=== PATIENT | female | born 1960 | race Caucasian/White ===

== ENCOUNTER 2021-03-18 08:54 | Emergency (ER) | payer OTHER ==
[~2021-03-18] VITALS: Ht 157.5 cm; Wt 82.6 kg
[2021-03-18] MEDS ORDERED: COZAAR25 MG PO (09:09)
== END 2021-03-18 10:13 | disposition home or self-care (01) ==
LOC: ED 08:54
DX: U07.1 COVID-19 (principal); I10 Essential (primary) hypertension; Z85.528 Personal history of other malignant neoplasm of kidney; Z79.899 Other long term (current) drug therapy
CPT/HCPCS: 94640; 94664; 99283; J7512

== ENCOUNTER 2023-01-19 15:32 | Emergency (ER) | payer BC ==
[~2023-01-19] VITALS: Ht 157.5 cm; Wt 82.5 kg
--- OUTSIDE RECORDS SUMMARY | ~2023-01-19 | XMS | Continuity of Care Document ---
Demographics + + + | Address | [address] | | | [place] [address] | + + + | Preferred Language | Unknown | + + + | Marital Status | Unknown | + + + | Yarsanism Affiliation | Unknown | + + + | Race | White | + + + | Ethnic Group | Unknown | + + + Author + + + | Author | [facility] | + + + | Organization | [facility] | + + + | Address | [address] | | | [place] [address] | + + + | Phone | | + + + Care Team Providers + + + + | [facility] [employer] Name | Role | Phone | + + + + Unavailable | Unavailable | + + + + Allergies No information. Encounters No information. Functional Status No information. Immunizations No information. Medications No information. Problems No information. Procedures No information. Results/Labs +--------+--------+ +---------+--------+---------+ | test | date | facility | value | unit | notes | +--------+--------+ +---------+--------+---------+ + + | Result panel 1 | + + + + + +-------+---------+ + | POC | 2022-12-04 | [facility] | 0.8 | mg/dl | NOTE: | | CREATININE | 09:58:14 | [facility] | | | Specimen | | | | MEDICAL | | | Type: Blood | | | | [facility] | | | | + + + +-------+---------+ + Social History +--------+ + + | date | description | facility | +--------+ + + Vital Signs No information."
[~2023-01-19 15:32] MED LIST: COZAAR25 MG PO
[2023-01-19] MEDS ORDERED: LEVOTHYROXINE25 MC1 PO (15:45)
[2023-01-19] MEDS ORDERED: OZEMPIC2 MG/0.75 SQ (15:45)
[2023-01-19] MEDS ORDERED: ZETIA10 MG PO (15:46)
[2023-01-19] MEDS ORDERED: CRESTOR5 MG PO (15:46)
[2023-01-19] MEDS ORDERED: ALDACTONE50 MG PO (15:47)
[2023-01-19 15:52] LABS: BASOPHILS 1.2 % (0-2); EOSINOPHILS 0.9 % (0-6); HEMATOCRIT 37.4 % (35.0-50.0); HEMOGLOBIN 11.7 g/dL (12.0-18.0); LYMPHOCYTES 27.3 % (24-44); MCH 19.6 (27-36); MCHC 31.4 g/dl (30-36); MCV 62.3 fl (81-99); MONOCYTES 5.6 % (0-12); PLATELET COUNT 245 K/uL (140-440); RDW 16.3 (10.5-15.0)
[2023-01-19 16:09] LABS: ALBUMIN 3.9 g/dL (3.4-5.0); ALBUMIN/GLOBULIN RATIO 1.05 (1.1-2.4); ANION GAP 11.8 (7-21); BILIRUBIN, TOTAL 0.6 ng/dL (0.2-1.0); BUN/CREATININE RATIO 21.05 (6.0-28.6); CALCIUM 9.6 mg/dL (8.5-10.1); CREATININE, SERUM 0.95 mg/dL (0.55-1.02); POTASSIUM 3.8 mmol/L (3.5-5.1); PROTEIN, TOTAL 7.6 g/dL (6.4-8.2)
[2023-01-19 18:25] VITALS: BP 110/72
--- NOTE | 2023-01-19 22:24 | EKG ---
[facility] [address] [facility] [place] [address] Signed Normal sinus rhythm Normal ECG No previous ECGs available Confirmed by Tram Acosta MD () on 01/19/2023 10:24:41 PM Electronically Signed By: TRAM ACOSTA MD 01/19/232223 PATIENT NAME: SARAH STARR Electrocardiogram DATE OF : 56 PHYSICIAN: TRAM ACOSTA MD REPORT #: [id number] REPORT IS CONFIDENTIAL AND NOT TO BE RELEASED WITHOUT AUTHORIZATION
== END 2023-01-19 18:25 | disposition home or self-care (01) ==
LOC: ED 15:32
PROVIDERS: Emergency Medicine
DX: K21.9 Gastro-esophageal reflux disease without esophagitis (principal); I10 Essential (primary) hypertension; Z79.899 Other long term (current) drug therapy
CPT/HCPCS: 36415; 71045; 80053; 84484; 85025; 85060; 93005; 93010